=== PATIENT | male | born 1955 | race Caucasian/White ===

== ENCOUNTER 2019-03-05 08:56 | Emergency (ER) | payer BC ==
--- OUTSIDE RECORDS SUMMARY | 2019-03-05 08:59 | XMS REPORT ---
:1955 Author Organization [facility] Address [address] [place] [address] Care Team Providers Name Role Phone Unavailable Unavailable Unavailable Payers Payer Name Policy Type Policy Number Effective Date Expiration Date Problems This patient has no known problems. Allergies, Adverse Reactions, Alerts Allergy Allergy Status Severity Reaction(s) Onset Inactive Treating Comments Name Type Date Date Clinician No Known DA Active U 2018-07 Drug -29 Allergies 00:00:0 0 Medications This patient has no known medications. Results Test Description Test Time Test Comments Text Results Atomic Results Result Comments - XR SPINE 1 V SPEC LEVEL 2018-08-15 11:44:00 Patient Name: ELIZABETH DRIVER Unit No: [id number] EXAMS: CPT CODE: [id number] XR SPINE 1 V SPEC LEVEL 89021 INTRAOPERATIVE LATERAL LUMBAR SPINE Film 1. A marker is posterior to L3-4. Film 2. A surgical instrument is posterior to L3-4. at 1144 Reported and signed by: Dhaval Baker MD CC: Tolu De La Fuente M.D. Technologist: GERI ENGLISH (RT.R) Transcribed D/ (1144) [facility] NAME: ELIZABETH DRIVER [address] [facility] PHYS: Og Sahu MD : 1955 AGE: 62 SEX: M [place] [address] LOC: ALFONZO PHONE #: [phone] EXAM DATE: 08/14/2018 STATUS: [facility] [place] FAX #: [phone] RAD #: D/C DT PAGE 1 Signed Report Patient Name: ELIZABETH DRIVER Unit No: [id number] EXAMS: CPT CODE: [id number] XR SPINE 1 V SPEC LEVEL 70684 <Continued> Orig Print D/T: S: 08/15/2018 (1140) [facility] NAME: ELIZABETH DRIVER [address] [facility] PHYS: Og Sahu MD : 1955 AGE: 62 SEX: M [place] [address] LOC: ALFONZO PHONE #: [phone] EXAM DATE: 08/14/2018 STATUS: [facility] [place] FAX #: [phone] RAD #: D/C DT PAGE 2 Signed Report - XR SPINE 1 V SPEC LEVEL 2018-08-15 11:44:00 Patient Name: ELIZABETH DRIVER Unit No: [id number] EXAMS: CPT CODE: [id number] XR SPINE 1 V SPEC LEVEL 83367 INTRAOPERATIVE LATERAL LUMBAR SPINE Film 1. A marker is posterior to L3-4. Film 2. A surgical instrument is posterior to L3-4. at 1144 Reported and signed by: Dhaval Baker MD CC: Tolu De La Fuente M.D. Technologist: GERI ENGLISH (RT.R) Transcribed D/ (1149) [facility] NAME: ELIZABETH DRIVER [address] [facility] PHYS: Og Sahu MD : 1955 AGE: 62 SEX: M [place] [address] LOC: ALFONZO PHONE #: [phone] EXAM DATE: 08/14/2018 STATUS: [facility] [place] FAX #: [phone] RAD #: D/C DT PAGE 1 Signed Report Patient Name: ELIZABETH DRIVER Unit No: [id number] EXAMS: CPT CODE: [id number] XR SPINE 1 V SPEC LEVEL 05723 <Continued> Orig Print D/T: S: 08/15/2018 (1147) [facility] NAME: ELIZABETH DRIVER [address] [facility] PHYS: Og Sahu MD : 1955 AGE: 62 SEX: M [place], [place] [address] LOC: ALFONZO PHONE #: [phone] EXAM DATE: 08/14/2018 STATUS: [facility] [place] FAX #: [phone] RAD #: D/C DT PAGE 2 Signed Report BASIC METABOLIC PANEL 2018-08-13 11:58:00 Test Item Value Reference Range Comments SODIUM (test code=NA) 131 mmol/L 136-145 POTASSIUM (test code=K) 3.9 mmol/L 3.5-5.1 CHLORIDE (test code=CL) 94.0 mmol/L 98-107 CARBON DIOXIDE (test code=CO2) 28.7 mmol/L 21-32 GLUCOSE (test code=GLU) 93 mg/dL 70-110 BLOOD UREA NITROGEN (test 11 mg/dL 7-18 code=BUN) GLOMERULAR FILTRATION RATE (test 74.9 >60 Unit of measure: mL/min/1.73 code=GFR) [id number] Range:Healthy Adults >90 mL/min/1.73 m2 For Chronic Kidney Disease: Stage II Mild Decrease in GFR 60-90 Stage III Moderate Decrease in GFR 30-59 Stage IV Severe Decrease in GFR 15-29 Stage V Kidney Failure <15 CREATININE (test code=CREAT) 1.01 mg/dL 0.55-1.30 CALCIUM (test code=CA) 8.4 mg/dL 8.2-10.1 URINALYSIS [id number] 11:44:00 Test Item Value Reference Range Comments UA COLOR (test code=COLU) YELLOW YELLOW UA APPEARANCE (test code=APPU) CLEAR CLEAR UA GLUCOSE DIPSTICK (test code=DGLUU) NEGATIVE NEGATIVE UA BILIRUBIN DIPSTICK (test code=BILU) 2+ NEGATIVE UA KETONE DIPSTICK (test code=KETU) NEGATIVE mg/dL NEGATIVE UA SPECIFIC GRAVITY (test code=SGU) <=1.005 1.003-1.035 UA BLOOD DIPSTICK (test code=MUKESH) NEGATIVE NEGATIVE UA PH DIPSTICK (test code=DIVINE) 7.0 >6.5 UA PROTEIN DIPSTICK (test code=PROU) NEGATIVE mg/dL NEG UA UROBILINIOGEN DIPSTICK (test code=URO) 0.2 mg/dL NORM UA NITRITE DIPSTICK (test code=DOMINIQUE) NEGATIVE NEG UA LEUKOCYTE ESTERASE DIPSTICK (test NEGATIVE NEGATIVE code=LEUU) UA WBC (test code=WBCU) NONE SEEN /HPF 0-2 UA RBC (test code=RBCU) NONE SEEN /HPF 0-2 UA EPITHELIAL CELLS (test code=EPIU) NONE SEEN /HPF 0-2 UA BACTERIA (test code=BACU) RARE /HPF NONE CBC W/AUTO [id number] 11:10:00 Test Item Value Reference Range Comments WHITE BLOOD CELL (test code=WBC) 7.6 K/mm3 5.7-10.5 RED BLOOD CELL (test code=RBC) 4.69 M/mm3 4.2-5.4 HEMOGLOBIN (test code=HGB) 14.0 g/dL 12-16 HEMATOCRIT (test code=HCT) 39.5 % 37-47 MEAN CELL VOLUME (test code=MCV) 84 fL 80-98 MEAN CELL HGB (test code=MCH) 29.9 pg 27-34 MEAN CELL HGB CONCENTRATION (test code=MCHC) 35.4 g/dL 30.8-34.1 RED CELL DISTRIBUTION WIDTH (test code=RDW) 12.0 % 11-16 PLT (test code=PLT) 227 K/mm3 130-400 MEAN PLATELET VOLUME (test code=MPV) 9.5 fL 8.9-12.1 NEUTROPHIL % (test code=NT%) 67.9 % 45-70 LYMPHOCYTE % (test code=LY%) 19.7 % 20-40 MONOCYTE % (test code=MO%) 9.1 % 3-10 EOSINOPHIL % (test code=EO%) 1.6 % 1-5 BASOPHIL % (test code=BA%) 0.4 % 0.0-1.1 NEUTROPHIL # (test code=NT#) 5.15 K/mm3 2.00-7.50 LYMPHOCYTE # (test code=LY#) 1.49 K/mm3 1.50-4.00 MONOCYTE # (test code=MO#) 0.69 K/mm3 0.2-0.8 EOSINOPHIL # (test code=EO#) 0.12 K/mm3 0.04-0.4 BASOPHIL # (test code=BA#) 0.03 K/mm3 0.02-0.10 MANUAL DIFF REQUIRED (test code=MDIFF) NO MANUAL DIFF NUCLEATED RED BLOOD CELL (test code=NRBC) 0 % 0-0 - MRI L-SPINE W/O [id number] 10:51:00 Patient Name: ELIZABETH DRIVER Unit No: [id number] EXAMS: CPT CODE: [id number] MRI L-SPINE W/O CONT 05118 DIAGNOSIS: 1. At L1-2 there is no evidence for disc bulge or herniation, bony canal or foraminal stenosis. 2. At L2-3 there is a mild retrolisthesis with associated disc bulging and mild foraminal narrowing on the left with moderate narrowing on the right. Mild central canal stenosis is seen with facet and ligamentum flavum hypertrophicand degenerative change. 3. At L3-4 there is a mild retrolisthesis with 6 mm of cephalad extruded right posterior lateral disc herniation filling the right lateral recess of L3 compressing the right L4 nerve root and to a lesser degree the thecal sac. Mild narrowing of the central canal is seen due to facet and ligamentum flavum hypertrophic and degenerative change. Moderate bilateral foraminal narrowing is present. 4. At L4-5 there is a slight retrolisthesis and 2 mm of right foraminal disc bulging. Mild foraminal narrowing is present on the left with slight narrowing on the right. Mild narrowing of the central canal is seen with facet and ligamentum flavum hypertrophic and degenerative change. 5. At L5-S1 there are bilateral L5 spondylolysis defects and a grade 1 spondylolisthesis with upwards disc bulging. Moderate left foraminal narrowing is seen with mild right-sided stenosis. There is no evidence for canal stenosis. COMMENT: COMPARISON: No prior exams available. Scans were performed in the sagittal and axial planes utilizing T1, T2 and inversion recovery images. Endplate and disc degeneration is seen at all levels except L4-5.A scoliosis convex left is present. Disc configurations are as described. Spondylitic changes are as noted. The conus is in the expected location. The description these findings assumes a normal count of 5 lumbar type vertebra. at 1051 Reported and signed by: Dhaval Baker MD CC: Tolu De La Fuente M.D.Technologist: JOY PITTMAN RT(R) Transcribed D/ (1951) [email or web address] NAME: EILZABETH DRIVER [address] [facility] PHYS: Og Sahu MD : 1955 AGE: 62 SEX: M [place], [place] [address]FODS NO : [id number] LOC: Y.MRI PHONE #: [phone] EXAM DATE: 08/09/2018 STATUS: [facility] FAX #: [phone] RAD #: D/C DT PAGE 1 Signed Report Patient Name: ELIZABETH DRIVER Unit No: [id number] EXAMS: CPT CODE : [id number] MRI L-SPINE W/O CONT [id number] <Continued> Orig Print D/T: S: 08/12/2018 (7938) [facility] NAME: ELIZABETH DRIVER [address] [facility] PHYS: Og Sahu MD : 1955 AGE: 62 SEX: M [place], [place] [address] LOC: Y.MRI PHONE #: [phone] EXAM DATE: 08/09/2018 STATUS: [facility] FAX #: [phone] RAD # : D/C DT PAGE 2 Signed Report
[2019-03-05] MEDS ORDERED: MORPHINE 4 MG/ML SYR ONE (09:21)
[2019-03-05] MEDS ORDERED: ONDANSETRON 4 MG/2 ML VIAL ONE (09:22)
[2019-03-05 09:39] LABS: Absolute Lymphocytes (CBC) 1.2 K/uL (0.7-4.9); Hematocrit 43.1 % (39.6-49.0); Lymphocytes % 22.2 % (15.3-44.8); MPV 8.6 fL (7.6-11.3); RBC Red Blood Cell Count 4.85 M/uL (4.33-5.43)
[2019-03-05 09:43] LABS: Protime INR 0.96
[2019-03-05 09:50] LABS: Potassium 3.9 mmol/L (3.5-5.1)
--- NOTE | 2019-03-05 10:36 | RAD REPORT ---
EXAM DESCRIPTION: CT - Chest Abdomen Pelvis W Cont - 03/05/2019 10:19 am CLINICAL HISTORY: Chest and abdomen pain. fall, lande don left side on stairs, left rib/flank/pelvic COMPARISON: No comparisons TECHNIQUE: Approximately 100 mL nonionic IV contrast was administered to the patient. All CT scans are performed using dose optimization technique as appropriate and may include automated exposure control or mA/KV adjustment according to patient size. FINDINGS: Subsegmental atelectasis is present in the right lung base. The lungs are otherwise clear. No pleural or pericardial effusion.No intrathoracic adenopathy. Nondisplaced fracture involves the posterior left tenth and eleventh ribs as well as the left L1 licea sverse process. The liver, spleen, pancreas, adrenal glands and kidneys are within normal limits. No bowel obstruction, free air, free fluid or abscess. Small bilateral fat containing inguinal hernia s. Small fat containing umbilical hernia. No pathologic lymphadenopathy in the abdomen or pelvis. IMPRESSION: Nondisplaced fracture involving posterior left tenth and eleventh ribs.No pneumothorax. Nondisplaced fracture involving the left transverse process L1 without canal compromise.
--- NOTE | 2019-03-05 10:58 | ER ---
Nurse's Notes [facility] Name: Dedrick Holliday Age: 63 yrs Sex: Male : 1955 Arrival Date: 03/05/2019 Time: 08:58 Bed 5 Private MD: Diagnosis: Multiple fractures of ribs, left side;Fracture of first lumbar vertebra-Left spinous process Presentation: 03/05 09:04 Presenting complaint: Patient states: fell while walking down stairs 3 days ago, ss coughed two hours ago and reports that the pain is now much worse. Slipped on 4th from last step. Transition of care: patient was not received from another setting of care. Onset of symptoms was March 02, 2019. Risk Assessment: Do you want to hurt yourself or someone else? Patient reports no desire to harm self or others. Initial Sepsis Screen: Does the patient have a suspected source of infection? No. Patient's initial sepsis screen is negative. Care prior to arrival: None. 09:04 Method Of Arrival: Ambulatory ss 09:04 Acuity: CONTRERAS 3 ss Historical: - Allergies: 09:08 No Known Allergies; ss - Immunization history:: Adult Immunizations up to date. - Social history:: Smoking status: Patient/guardian denies using tobacco. - Ebola Screening: : Patient denies exposure to infectious person Patient denies travel to an Ebola-affected area in the 21 days before illness onset. - Family history:: not pertinent. - Hospitalizations: : No recent hospitalization is reported. Screenin:45 Abuse screen: Denies threats or abuse. Denies injuries from another. Nutritional sg screening: No deficits noted. Tuberculosis screening: No symptoms or risk factors identified. Never had TB. Fall Risk Fall in past 12 months (25 points). No secondary diagnosis (0 pts). No IV (0 pts). Ambulatory Aid- None/Bed Rest/Nurse Assist (0 pts). Gait- Normal/Bed Rest/Wheelchair (0 pts) Mental Status- Oriented to own ability (0 pts). Total Gomez Fall Scale indicates Low Risk Score (25-44 pts). Fall prevention measures have been instituted. Side Rails Up X 2 Frequent Obs/Assesments occuring Family Present and informed to notify staff if they need to leave bedside. Assessment: 10:47 Reassessment: Patient appears in no apparent distress at this time. at bedside sg updating pt and pt family on results and POC at this time, awaiting new orders, will continue to monitor. Vital Signs: 09:08 Resp 18; Weight 95.25 kg; Height 5 ft. 10 in. (177.80 cm); Pain 9/10; ss 09:14 BP 181 / 94; Pulse 60; Pulse Ox 97% ; sv 10:28 BP 167 / 94; Pulse 50; Resp 18; Pulse Ox 97% ; sv 09:08 Body Mass Index 30.13 (95.25 kg, 177.80 cm) ED Course: 08:58 Patient arrived in ED. as 09:00 Fabiano Luong MD is Attending Physician. rn 09:02 Lai Borrego, JUAN C is Primary Nurse. sg 09:07 Triage completed. ss 09:08 Arm band placed on right wrist. ss 09:15 Patient has correct armband on for positive identification. Bed in low position. Call sg light in reach. Side rails up X2. desk monitor on. Pulse ox on. NIBP on. Warm blanket given. Head of bed elevated. 09:29 Initial lab(s) drawn, by vt, sent to lab. Inserted saline lock: 20 gauge in right em1 antecubital area, using aseptic technique. Blood collected. 09:37 XRAY Chest (1 view) In Process Unspecified. EDMS 10:21 CT Chest, Abdomen, Pelvis - W/Contrast In Process Unspecified. EDMS 11:10 No provider procedures requiring assistance completed. IV discontinued, intact, sg bleeding controlled, No redness/swelling at site. Pressure dressing applied. Administered Medications: 09:25 Drug: Zofran 4 mg Route: IVP; Site: right antecubital; sg 09:27 Drug: morphine 4 mg Route: IVP; Site: right antecubital; sg Outcome: 10:57 Discharge ordered by . rn 11:05 Discharged to home ambulatory, with family. sg 11:05 Condition: good 11:05 Discharge instructions given to patient, Instructed on discharge instructions, follow up and referral plans. no drinking with medication, no driving heavy equipment, medication usage, safety practices, Incentive spirometry Demonstrated understanding of instructions, follow-up care, medications, Prescriptions given X 3. 11:12 Patient left the ED. sg Signatures: Dispatcher [employer] EDMS Yaritza Duque RN RN Lai Hopkins, RN RN nnamdi Goncalves, Fabiano Blanco MD MD rn Martinez, Dawn Reyes, JUAN C RN
--- NOTE | 2019-03-05 10:59 | EDPHYS ---
Physician Documentation [facility] Name: Dedrick Holliday Age: 63 yrs Sex: Male : 1955 Arrival Date: 03/05/2019 Time: 08:58 Bed 5 Private MD: ED Physician Fabiano Luong HPI: 03/05 09:18 This 63 yrs old Male presents to ER via Ambulatory with complaints of Rib rn Injury. 09:18 The patient or guardian reports chest pain that is located primarily in the left rn lateral anterior chest and left lateral posterior chest. Onset: The symptoms/episode began/occurred 3 day(s) ago. The pain does not radiate. Associated signs and symptoms: Pertinent negatives: headache, near syncope, palpitations, syncope, vomiting. The chest pain is described as sharp, stabbing. Duration: The patient or guardian reports multiple episodes, that are intermittent. Modifying factors: The symptoms are alleviated by nothing. the symptoms are aggravated by deep breath, movement, palpation of area. Severity of pain: At its worst the pain was moderate in the emergency department the pain is unchanged. The patient has not experienced similar symptoms in the past. Reports fall down stairs on Saturday, has been in pain since then, taking ibuprofen ritually since then, today coughed and strained, and had worse pain to left ribs/flank. Reports landed on left side of body, onto 3 steps, no head injury, reports pain to left ribs and left pelvis. . Historical: - Allergies: 09:08 No Known Allergies; ss - Immunization history:: Adult Immunizations up to date. - Social history:: Smoking status: Patient/guardian denies using tobacco. - Ebola Screening: : Patient denies exposure to infectious person Patient denies travel to an Ebola-affected area in the 21 days before illness onset. - Family history:: not pertinent. - Hospitalizations: : No recent hospitalization is reported. ROS: 09:18 Constitutional: Negative for fever, chills, and weight loss, Eyes: Negative for injury, rn pain, redness, and discharge, Neck: Negative for injury, pain, and swelling, Cardiovascular: + left rib pain Respiratory: Negative for shortness of breath, cough, wheezing Abdomen/GI: + left pelvic pain MS/Extremity: Negative for injury and deformity, Skin: Negative for injury, rash, and discoloration, Neuro: Negative for headache, weakness, numbness, tingling, and seizure. Exam: 09:18 Constitutional: This is a well developed, well nourished patient who is awake, alert, rn very slow ambulating to room. Head/Face: Normocephalic, atraumatic. Eyes: Pupils equal round and reactive to light, extra-ocular motions intact. Lids and lashes normal. Conjunctiva and sclera are non-icteric and not injected. Cornea within normal limits. Periorbital areas with no swelling, redness, or edema. ENT: No oral trauma. Cardiovascular: Regular rate and rhythm. No pulse deficits. Respiratory: Lungs have equal breath sounds bilaterally, clear to auscultation. No increased work of breathing, no retractions or nasal flaring. Splinting left chest with deep breath Abdomen/GI: soft, mild LUQ tenderness, no skin changes Back: No spinal tenderness. MS/ Extremity: Pulses equal, no cyanosis. Neurovascular intact. Full, normal range of motion Neuro: Awake and alert, GCS 15, oriented to person, place, time, and situation. Cranial nerves II-XII grossly intact. Motor strength 5/5 in all extremities. Sensory grossly intact. Cerebellar exam normal. Normal gait. Vital Signs: 09:08 Resp 18; Weight 95.25 kg; Height 5 ft. 10 in. (177.80 cm); Pain 9/10; ss 09:14 BP 181 / 94; Pulse 60; Pulse Ox 97% ; sv 10:28 BP 167 / 94; Pulse 50; Resp 18; Pulse Ox 97% ; sv 09:08 Body Mass Index 30.13 (95.25 kg, 177.80 cm) ss MDM: 09:00 Patient medically screened. rn 10:55 Differential diagnosis: Blunt Chest Trauma Chest Wall Contusion Chest Wall Injury rn Pneumothorax Pulmonary Contusion Rib Fracture. Data reviewed: vital signs, nurses notes, lab test result(s), radiologic studies, CT scan, plain films, and as a result, I will discharge patient. Counseling: I had a detailed discussion with the patient and/or guardian regarding: the historical points, exam findings, and any diagnostic results supporting the discharge/admit diagnosis, lab results, radiology results, the need for outpatient follow up, to return to the emergency department if symptoms worsen or persist or if there are any questions or concerns that arise at home. Response to treatment: the patient's symptoms have mildly improved after treatment, and as a result, I will discharge patient. Special discussion: I discussed with the patient/guardian in detail that at this point there is no indication for admission to the hospital. It is understood, however, that if the symptoms persist or worsen the patient needs to return immediately for re-evaluation. ED course: Pt with left 10th/11th rib fractures, no pneumothorax or pulmonary contusion, also L1 transverse process fracture. Will dc home with pain medication and muscle relaxers. Given incentive spirometer, and instructed on what not to do to prevent secondary problems such as pneumonia.. 03/05 09:15 Order name: CBC with Diff; Complete Time: 10:33 03/05 09:15 Order name: Basic Metabolic Panel; Complete Time: 10:33 03/05 09:15 Order name: CT Chest, Abdomen, Pelvis - W/Contrast; Complete Time: 10:41 03/05 09:15 Order name: PT-INR; Complete Time: 10:33 03/05 09:15 Order name: Ptt, Activated; Complete Time: 10:33 03/05 09:15 Order name: XRAY Chest (1 view) 03/05 09:15 Order name: IV Start; Complete Time: 09:27 03/05 11:00 Order name: INCENTIVE SPIROMETRY sg Administered Medications: 09:25 Drug: Zofran 4 mg Route: IVP; Site: right antecubital; sg 09:27 Drug: morphine 4 mg Route: IVP; Site: right antecubital; sg Disposition: 03/05/19 10:57 Discharged to Home. Impression: Multiple fractures of ribs, left side, Fracture of first lumbar vertebra - Left spinous process. - Condition is Stable. - Discharge Instructions: Rib Fracture, Transverse Process Fracture. - Prescriptions for Ibuprofen 800 mg Oral Tablet - take 1 tablet by ORAL route every 12 hours As needed take with food; 20 tablet. Tylenol- Codeine #3 300-30 mg Oral Tablet - take 1 tablet by ORAL route every 6 hours As needed; 20 tablet. Cyclobenzaprine 10 mg Oral Tablet - take 1 tablet by ORAL route every 8 hours As needed; 20 tablet. - Work release form, Medication Reconciliation Form, Thank You Letter, Antibiotic Education, Prescription Opioid Use form. - Follow up: Private Physician; When: As needed; Reason: Recheck today's complaints, Re-evaluation by your physician. - Problem is new. - Symptoms have improved. Signatures: Dispatcher [employer] Lai Gregory RN RN sg Nieto, Roman, MD MD rn Smirch, Shelby, RN RN ss Corrections: (The following items were deleted from the chart) 11:12 10:57 03/05/2019 10:57 Discharged to Home. Impression: Multiple fractures of ribs, left sg side; Fracture of first lumbar vertebra - Left spinous process. Condition is Stable. Forms are Medication Reconciliation Form, Thank You Letter, Antibiotic Education, Prescription Opioid Use. Follow up: Private Physician; When: As needed; Reason: Recheck today's complaints, Re-evaluation by your physician. Problem is new. Symptoms have improved. rn
[2019-03-05 11:34] VITALS: BP 167/94; O2SAT 97
--- NOTE | 2019-03-13 11:30 | RAD REPORT ---
EXAM DESCRIPTION: RAD - Chest Single View - 03/05/2019 9:33 am CLINICAL HISTORY: Blunt force trauma to the chest and upper abdomen COMPARISON: None. TECHNIQUE: AP portable chest image was obtained 0930 hours . FINDINGS: Exam was resubmitted for interpretation as the original dictation cannot be retrieved. Lung volumes are low. Right hemidiaphragm is elevated. Lung parenchyma is clear. Heart and vasculatur e are normal. No measurable pleural effusion and no pneumothorax. No acute bone finding identifiable. AC joint degenerative changes are present. Rib detail is considered limited in this setting. No acut e aortic findings suspected. IMPRESSION: No acute cardiopulmonary process. No gross acute bone abnormality seen. Dedicated rib films or CT chest imaging could be performed if t here is concern for rib fracture.
== END 2019-03-05 11:12 | disposition home or self-care (01) ==
LOC: ER 08:56
DX: S22.42XA Multiple fractures of ribs, left side, initial encounter for closed fracture (principal); S32.019A Unspecified fracture of first lumbar vertebra, initial encounter for closed fracture; W10.9XXA Fall (on) (from) unspecified stairs and steps, initial encounter; Y93.9 Activity, unspecified; Y92.9 Unspecified place or not applicable
CPT/HCPCS: 85025; 80048; 36415; 85610; 85730; 71260; 74177; 71045; 96375; 96374; 99284; Q9967; J2405

== ENCOUNTER 2024-01-17 17:11 | Emergency (ER) | payer OTHER ==
--- OUTSIDE RECORDS SUMMARY | 2024-01-17 17:18 | XMS REPORT | Continuity of Care Document ---
Author Name Unknown Address [address] [place] [address] [facility]connect Address 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 Name Role Phone PCP, PATIENT DOES NOT HAVE A Primary Care Physic raul Unavailable EbrahiMaria Guadalupe Watts Attending Clinician + Unknown, Attending Attending Clinician Unavailab MARIA GUADALUPE Stallings Attending Clinician Unavailable Ebrahim MATZO FORMING MACHINE OPERATORMaria Guadalupe Newman Attending Clinician + Unknown, Attending Attending Clinician Unavailab le Doctor Unassigned, [place] Attending Clinician U navailable Payers Payer Name Policy Type Policy Number Effective Date Expirati on Date Source Allergies, Adverse Reactions, Alerts Allergy Name Allergy Type Status Severity Reaction(s) Onset Date Inactive Date Treating Clinician Comments Source No Known Drug Allergie s DA Active U 08-13 00:00: 00 [facility] NO KNOWN ALLERGIE S Drug Class Active [facility] Social History Social Habit Start Date Stop Date Quantity Comments Source Sexual orientation U [facility] Exposure to SARS-CoV-2 (event) 2022-05-20 00:00:00 2022-05-30 18:37:00 Not sure [facility] History of Social function 2022-05-30 00:00:00 2022-05-30 00:00:00 [facility] Sex assigned at 1955 00:00:00 1955 00:00:00 [facility] Smoking Status Start Date Stop Date Source Tobacco smoking consumption unknown [facility] Medications Ordered Medication Name Filled Medication Name Start Date Stop Date Current Medication? Ordering Clinician Indication Dosage Frequency Signature (SIG) Comments Components Source nirmatrelvi r-ritonavir (PAXLOVID, EUA,) 300 mg (150 mg x 2)-100 mg tablet 15 00:00: 00 Yes [id number] 3{tbl} Take 3 tablets by mouth in the morning and 3 tablets in the evening. [facility] Immunizations Ordered Immunization Name Filled Immunization Name Date Status Comments Source SARS-COV-2 COVID-19 PFIZER VACCINE 2020-07-01 00:00:00 Completed [facility] SARS-COV-2 COVID-19 PFIZER VACCINE 2020-07-01 00:00:00 Completed [facility] SARS-COV-2 COVID-19 PFIZER VACCINE 2020-07-01 00:00:00 Completed [facility] SARS-COV-2 COVID-19 PFIZER VACCINE 2020-06-10 00:00:00 Completed [facility] SARS-COV-2 COVID-19 PFIZER VACCINE 2020-06-10 00:00:00 Completed [facility] SARS-COV-2 COVID-19 PFIZER VACCINE 2020-06-10 00:00:00 Completed [facility] Vital Signs Vital Name Observation Time Observation Value Comments S kenneth Systolic blood pressure 2023-12-13 20:54:00 138 mm[Hg] [place] [facility] Diastolic blood pressure 2023-12-13 20:54:00 75 mm[Hg] [facility] Heart rate 2023-12-13 20:54:00 56 /min [facility] Body temperature 2023-12-13 20:54:00 36.39 Latia [facility] Respiratory rate 2023-12-13 20:54:00 16 /min [facility] Body height 2023-12-13 20:54:00 177.8 cm [facility] Body weight 2023-12-13 20:54:00 103.465 kg [facility] BMI 2023-12-13 20:54:00 32.73 kg/m2 [facility] Oxygen saturation in Arterial blood by Pulse oximetry 2023-12-13 20:54:00 99 /min [facility] Systolic blood pressure 2022-05-30 23:43:00 152 mm[Hg] [facility] Diastolic blood pressure 2022-05-30 23:43:00 87 mm[Hg] [facility] Heart rate 2022-05-30 23:39:00 65 /min [facility] Body temperature 2022-05-30 23:39:00 36.94 Latia [facility] Respiratory rate 2022-05-30 23:39:00 18 /min [facility] Body height 2022-05-30 23:39:00 177.8 cm [facility] Body weight 2022-05-30 23:39:00 102.967 kg [facility] BMI 2022-05-30 23:39:00 32.57 kg/m2 [facility] Oxygen saturation in Arterial blood by Pulse oximetry 2022-05-30 23:39:00 98 /min [facility] Procedures Procedure Date / Time Performed Performing Clinicia n Source ASSIGNMENT OF BENEFITS 2022-05-30 23:29:40 Docto r Unassigned, [place] [facility] POCT SARS-COV-2 ANTIGEN (BINAX NOW) 2022-05-30 00:00:00 Maria Guadalupe Garza [facility] Encounters Start Date/Time End Date/Time Encounter Type Admission Type Attending Clinicians Care Facility Care Department Encounter ID Source 2023-12-13 16:00:00 2023-12-13 16:20:00 Urgent Care Maria Guadalupe Garza Unknown, Attending [facility] RADHA?[facility] [id number] [id number] [facility] 2023-12-13 16:00:00 2023-12-13 16:00:00 Outpatient R MARIA GUADALUPE GARZA [facility] [id number] [facility] 2022-05-30 18:40:00 2022-05-30 18:57:20 Urgent Care Maria Guadalupe Garza Unknown, Attending [facility] QASIM GARCIA?[facility] [id number] [id number] [facility] 2022-05-30 18:40:00 2022-05-30 18:57:20 Outpatient R MARIA GUADALUPE GARZA [facility] [id number] [facility] 2022-05-30 00:00:00 2022-05-30 00:00:00 Orders Only Doctor Unassigned, [place] [facility] [id number] [id number] [id number] [facility] Results Test Description Test Time Test Comments Results Result Co mments Source [facility]- XR SPINE 1 V SPEC [id number] 11:44:00 Patient Name: ELIZABETH DRIVER Unit No: [id number] EXAMS: CPT CODE: [id number] XR SPINE 1 V SPECLEVEL 37711 INTRAOPERATIVE LATERAL LUMBAR SPINE Film 1. A marker is posterior to L3-4. Film 2. A surgical instrument is posterior to L3-4. at 1144 Reported and signed by: Dhaval Baker MD CC: Tolu De La Fuente M.D. Technologist: GERI ENGLISH (RT.R) Transcribed D/ (1144) Anita [facility] NAME: ELIZABETH DRIVER [address] [facility] [place] [facility] PHYS: Og Sahu MD : 1955 AGE: 62 SEX: M [place], [place] [address] LOC: G[facility]YU PHONE #: [phone] EXAM DATE: 08/14/2018 STATUS: [facility] FAX #: [phone] RAD #: D/C DT PAGE 1 Signed Report Patient Name: ELIZABETH DRIVER Unit No: [id number] EXAMS: CPT CODE: [id number] XR SPINE 1 V SPEC LEVEL 00483 (Continued) Orig Print D/T: S: 08/15/2018 (1147) [facility] NAME: ELIZABETH DRIVER [address] [facility] [place] [facility] PHYS: Og Sahu MD : 1955 AGE: 62 SEX: M [place], [place] [address] LOC: PamelaDSU PHONE #: [phone] EXAM DATE: 08/14/2018 STATUS: [facility] FAX #: [phone] RAD #: D/C DT PAGE 2 Signed Report- XR SPINE 1 V SPEC [id number] 11:44:00Patient Name: ELIZABETH DRIVER Unit No: [id number] EXAMS: CPT CODE: [id number] XR SPINE 1 V SPECLEVEL 28123 INTRAOPERATIVE LATERAL LUMBAR SPINE Film 1. A marker is posterior to L3-4. Film 2. A surgical instrument is posterior to L3-4. at 1144 Reported and signed by: Dhaval Baker MD CC: Tlou De La Fuente M.D. Technologist: GERI ENGLISH (RT.R) Transcribed D/ (1144) [facility] NAME: ELIZABETH DRIVER [address] [facility] [place] [facility] PHYS: Og Sahu MD : 1955 AGE:62 SEX: M [place] [id number] LOC: PamelaDSU PHONE #: [phone] EXAM DATE: 08/14/2018 STATUS: [facility] FAX #: [phone] RAD #: D/C DT PAGE 1 Signed Report Patient Name: ELIZABETH DRIVER Unit No: [id number] EXAMS: CPT CODE: [id number] XR SPINE 1 V SPEC LEVEL 23290 (Continued) Orig Print D/T: S: 08/15/2018 (1147) [facility] NAME: ELIZABETH DRIVER [address] PHYS: Og Sahu MD : 1955 AGE: 62 SEX: M [place], [place] [address] LOC: YDaveDSU PHONE #: [phone] EXAM DATE: 08/14/2018 STATUS: DEP SDC FAX #: [phone] RAD #: D/C DT PAGE 2 Signed ReportBASIC METABOLIC [id number] 11:58:00* Test Item Value Reference Range Interpretation Comme nts SODIUM (test code = NA) 131 mmol/L 136-145 L POTASSIUM (test code = K) 3.9 mmol/L 3.5-5.1 N CHLORIDE (test code = CL) 94.0 mmol/L 98-107 L CARBON DIOXIDE (test code = CO2) 28.7 mmol/L 21-32 N GLUCOSE (test code = GLU) 93 mg/dL 70-110 N BLOOD UREA NITROGEN (test code = BUN) 11 mg/dL 7-18 N GLOMERULAR FILTRATION RATE (test code = GFR) 74.9 >60 Unit of m easure: mL/min/1.73 [id number] Range:Healthy Adults >90 mL/min/1.73 m2 For Chronic Kidney Disease: Stage II Mild Decrease in GFR 60-90 Stage III Moderate Decrease in GFR 30-59 Stage IV Severe Decrease in GFR 15-29 Stage V Kidney Failure <15 CREATININE (test code = CREAT) 1.01 mg/dL 0.55-1.30 N CALCIUM (test code = CA) 8.4 mg/dL 8.2-10.1 N URINALYSIS [id number] 11:44:00* Test Item Value Reference Range Interpretation Comme nts UA COLOR (test code = COLU) YELLOW YELLOW UA APPEARANCE (test code = APPU) CLEAR CLEAR UA GLUCOSE DIPSTICK (test co de = DGLUU) NEGATIVE NEGATIVE UA BILIRUBIN DIPSTICK (test code = BILU) 2+ NEGATIVE A UA KETONE DIPSTICK (test cod e = KETU) NEGATIVE mg/dL NEGATIVE UA SPECIFIC GRAVITY (test co de = SGU) <=1.005 1.003-1.035 UA BLOOD DIPSTICK (test code = MUKESH) NEGATIVE NEGATIVE UA PH DIPSTICK (test code = DIVINE) 7.0 >6.5 UA PROTEIN DIPSTICK (test co de = PROU) NEGATIVE mg/dL NEG UA UROBILINIOGEN DIPSTICK (test code = URO) 0.2 mg/dL NORM UA NITRITE DIPSTICK (test co de = DOMINIQUE) NEGATIVE NEG UA LEUKOCYTE ESTERASE DIPSTI CK (test code = LEUU) NEGATIVE NEGATIVE UA WBC (test code = WBCU) NONE SEEN /HPF 0-2 UA RBC (test code = RBCU) NONE SEEN /HPF 0-2 UA EPITHELIAL CELLS (test co de = EPIU) NONE SEEN /HPF 0-2 UA BACTERIA (test code = BACU) RARE /HPF NONE CBC W/AUTO [id number] 11:10:00* Test Item Value Reference Range Interpretation Comme nts WHITE BLOOD CELL (test code = WBC) 7.6 K/mm3 5.7-10.5 N RED BLOOD CELL (test code = RBC) 4.69 M/mm3 4.2-5.4 N HEMOGLOBIN (test code = HGB) 14.0 g/dL 12-16 N HEMATOCRIT (test code = HCT) 39.5 % 37-47 N MEAN CELL VOLUME (test code = MCV) 84 fL 80-98 N MEAN CELL HGB (test code = MCH) 29.9 pg 27-34 N MEAN CELL HGB CONCENTRATION (test code = MCHC) 35.4 g/dL 30.8-34.1 H RED CELL DISTRIBUTION WIDTH (test code = RDW) 12.0 % 11-16 N PLT (test code = PLT) 227 K/mm3 130-400 N MEAN PLATELET VOLUME (test c ode = MPV) 9.5 fL 8.9-12.1 N NEUTROPHIL % (test code = NT%) 67.9 % 45-70 N LYMPHOCYTE % (test code = LY%) 19.7 % 20-40 L MONOCYTE % (test code = MO%) 9.1 % 3-10 N EOSINOPHIL % (test code = EO%) 1.6 % 1-5 N BASOPHIL % (test code = BA%) 0.4 % 0.0-1.1 N NEUTROPHIL # (test code = NT#) 5.15 K/mm3 2.00-7.50 N LYMPHOCYTE # (test code = LY#) 1.49 K/mm3 1.50-4.00 L MONOCYTE # (test code = MO#) 0.69 K/mm3 0.2-0.8 N EOSINOPHIL # (test code = EO#) 0.12 K/mm3 0.04-0.4 N BASOPHIL # (test code = BA#) 0.03 K/mm3 0.02-0.10 N MANUAL DIFF REQUIRED (test c ode = MDIFF) NO MANUAL DIFF NUCLEATED RED BLOOD CELL (te st code = NRBC) 0 % 0-0 N - MRI L-SPINE W/O [id number] 10:51:00Patient Name: ELIZABETH DRIVER Unit No: [id number] EXAMS: CPT CODE: [id number] MRI L-SPINE W/O CONT [id number] DIAGNOSIS: 1. At L1-2 there is no evidence for disc bulge or herniation, bony canal or foraminal stenosis. 2. At L2-3 there is a mild retrolisthesis with associated disc bulging and mild foraminal narrowing on the left with moderate narrowing on the right. Mild central canal stenosis is seen with facet and ligamentum flavum hypertrophic and degenerative change. 3. At L3-4 there is a mild retrolisthesis with 6 mm of cephalad extruded right posterior lateral disc herniation filling the right lateral recess of L3 compressing the right L4 nerve root and to a lesser degree the thecal sac.Mild narrowing of the central canal is seen [...] the sagittal and axial planes utilizing T1, T 2 and inversion recovery images. Endplate and disc degeneration is seen at all levels except L4-5. A scoliosis convex left is present. Disc configurations are as described. Spondylitic changes are as noted. The conus is in the expected location. The description these findings assumes a normal count of 5 lumbar type vertebra. [id number] Reported and signed by: Dhaval Baker MD CC: Tolu De La Fuente M.D. Technologist: JOY PITTMAN RT(R) Transcribed D/ (1927) [email or web address] [facility] NAME: ELIZABETH DRIVER [address] [place] [address] PHYS: Og Sahu MD : 1955 AGE: 62 SEX: M [place] [address] LOC: Y.MRI PHONE #: [phone] EXAM DATE: 08/09/2018 STATUS: DEP CLI FAX #: [phone] RAD #: D/C DT PAGE 1 Signed Report Patient Name: ELIZABETH DRIVER Unit No: [id number] EXAMS: CPT CODE: [id number] MRI L-SPINE W/O CONT 29062 (Continued) Orig Print D/T: S: 08/12/2018 (1054) [facility] NAME: ELIZABETH DRIVER [address] [facility] PHYS: Og Sahu MD : 1955 AGE: 62 SEX: M [place] [address] LOC: Y.MRI PHONE #: [phone] EXAM DATE: 08/09/2018 STATUS: DEP CLI FAX #: [phone] RAD #: D/C DT PAGE 2 Signed Report Notes Date/Time Note Provider Source 2018-08-15 09:47:00 [id number] [facility] [address] [place] [address] PATIENT NAME: ELIZABETH DRIVER ADMIT DATE: 08/14/18 ACCOUNT NO: [id number] ROOM NO: AGE: 62 REPORT TYPE: OPERATIVE REPORT SEX: M ADMITTING PHYSICIAN: ATTENDING PHYSICIAN:Og De La Fuente MD OPERATION DATE: 08/14/2018 PREADMISSION DIAGNOSES: Multiple level lumbar degenerative changes with spondylolisthesis at L5-S1 with acute disk herniation at L3-L4 with right severe L3-L4 radiculopathy. POSTADMISSION DIAGNOSES: Multiple level lumbar degenerative changes with spondylolisthesis at L5-S1 with acute disk herniation at L3-L4 with right severe L3-L4 radiculopathy. PROCEDURE PERFORMED: Hemilaminectomy to the right at L3-L4. SURGEON: Kaia De La Fuente MD CONTRACTS ADVISOR: Brad Byrne MD The skilled assistance of Brad Byrne MD was necessary during this complex spinal procedure. He assisted with every aspect of the operation including but not limited to, proper and safe positioning of the patient, obtaining adequate surgical exposure, manipulation of the surgical instruments, the delicate task of providing suction to the surgical wound immediately adjacent to the spinal cord and neural elements, the delicate task of retraction of the soft tissues including muscles, trachea, and esophagus for adequate surgical exposure, the continual process of hemostasis during the procedure itself in addition to surgical wound closure and removal of patient from the operating room bed safely and returning him to the hospital bed. His assistance allowed me to perform the most sensitive in technical portions of this operation using four well trained hands, thus enhancing patient safety. The extremely technical portions of this procedure would not be possible without the help of the skilled department assistant familiar with the procedure who is also capable of performing the aforementioned tasks and who is experienced working with the neural structures. Our facility is not a teaching hospital and as such there are no surgical residents or interns available to assist. ANESTHESIA: COMPLICATIONS: None. DISPOSITION: The patient was taken from the operating room to recovery room in stable condition. INDICATIONS FOR SURGICAL INTERVENTION: Mr. Driver is a pleasant gentleman with PATIENT NAME: ELIZABETH DRIVER a history of spondylolisthesis and multiple level lumbar degenerative changes with long-term history of on and off low back pain. He tolerated low back pain with exercise, stretching and living with the pain on a day to day basis. He developed a severe acute L3-L4 radiculopathy with pain into his right leg. The patient underwent an MRI, which showed a large disk herniation off to the right hand side at L3-L4 consistent with the patient's symptoms. It was discussed with him at length his options for management including further medicines, exercises, conservative measures, injections, surgical intervention. The pain significantly affected ability to sleep, walk, function and do his activities of daily living and because of the continued pain, he elected to proceed forward with surgical intervention. He understood the procedure, risks, benefits, and alternative forms of treatment and he would continue to have the back pain he had prior to the herniated disk. PROCEDURE IN DETAIL: The patient was taken to the OR after given appropriate perioperative antibiotics and 10 mg of Decadron. He was positioned with his neck in a neutral position, upper extremities well padded, and his pulses intact in the Mckeon frame. Needle localization of the L3-L4 interval was carried out. The patient was prepped and draped. Incision was carried down through the skin and subcutaneous tissue down to the lamina. The lamina L3 and L4 were identified and confirmed radiographically. The ligamentum flavum was elevated using a 4 and 5-mm Kerrison, the ball-ended. The L4 nerve root was dissected free through the lateral recess and around the pedicle. The L3 nerve root was identified, superiorly sequestered was a large fragment of disk, which was subligamentous. Three large fragments were removed with four smaller fragments being removed. The area was inspected the second and third time to ensure all loose and free fragments were removed. Irrigation and hemostasis was carried out. The area was reinspected. Irrigation and hemostasis once again carried out. A medium Hemovac was placed. The fascia was closed using interrupted #1 Vicryl, subcutaneous tissue with 2-0 Vicryl, skin with 3-0 Vicryl. Steri-Strips and sterile dressing were applied. The patient was taken from the operating room to recovery room in stable condition. POSTOPERATIVE PLAN: To be up and ambulatory, begin on a walking and exercise program. Given general precautions for bending, lifting, twisting, turning, bathing, and wound care. Infection and neurologic warnings were given. The patient is to return back to clinic to follow up in 3 weeks. Discharge medications included pain medicine, muscle relaxer, steroid, and antibiotic. The patient is to call the office with any problems or difficulties post the time of discharge to home. Dictated By: Kaia De La Fuente MD WT: OP:TERRY/FELECIAB/NTS Conf#: [id number]/DID#: [id number] Authenticated by Og De La Fuente MD On 08/19/2018 01:01:09 PM PATIENT NAME: ELIZABETH DRIVER at 2301 PATIENT NAME: ELIZABETH DRIVER HCATO 2018-08-14 12:20:00 [facility] Brief Op Note REPORT#:[id number] REPORT STATUS: Signed DATE:08/14/18 TIME: 1220 PATIENT: ELIZABETH DRIVER UNIT #: [id number] ROOM/BED: : 55 AGE: 62 SEX: M ATTEND: Og De La Fuente MD ADM AUTHOR: Og De La Fuente MD * ALL edits or amendments must be made on the electronic/computer document * Op/Inv Proc Note - Brief Pre-procedure diagnosis: HNP L3-4 Post-procedure diagnosis: same as pre procedure dx Procedures performed: LLD L3-4 Primary Surgeon: Sudhakar Fluid Pump Operator(s): none (Caty) Findings: see op Complications: none Estimated blood loss in ml's: none Specimens removed/altered: none at 1221 RPT #:[id number] END OF REPORT HCATO
--- NOTE | 2024-01-17 18:44 | RAD REPORT ---
EXAM: Hand Right 3 View HISTORY: fall;Pain COMPARISON: None FINDINGS: Bones: No acute fracture identified. Alignment:No significant malalignment. Degenerative changes:None significant. Other: n/a IMPRESSION: No evidence of acute osseous abnormality involving the imaged hand.
[2024-01-17 19:09] LABS: Absolute Basophils 0.1 K/uL (0-0.5); Absolute Eosinophils 0.1 K/uL (0-0.5); Absolute Lymphocytes (CBC) 1.9 K/uL (0.7-4.9); Absolute Neutrophil 8.4 K/uL (1.8-8.0); Basophils % 0.5 % (0-1.3); Eosinophils % 0.8 % (0-4.4); Lymphocytes % 16.9 % (15.3-44.8); MCH 30.9 pg (27.0-35.0); MCHC 34.8 g/dL (32.0-36.0); MCV 88.9 fL (80-100); MPV 8.5 fL (7.6-11.3); Monocytes % 8.8 % (3.3-12.3); Nucleated Red Blood Cells % 0.2 % (0-0); Platelets 208 thou/uL (152-406); RBC Red Blood Cell Count 4.83 M/uL (4.33-5.43); Red Cell Distribution Width 12.7 % (12.1-15.2)
[2024-01-17 19:14] LABS: Anion Gap 9.9 mEq/L (5.0-15.0)
[2024-01-17 19:16] LABS: Potassium 3.9 mEq/L (3.5-5.1)
[2024-01-17 19:46] LABS: Specific Gravity 1.007 (1.005-1.030); Urine Bilirubin NEGATIVE (Negative); Urine Blood Negative (Negative); Urine Clarity Clear (Clear); Urine Color Colorless (Yellow); Urine Glucose NEGATIVE (Negative); Urine Ketones NEGATIVE (Negative); Urine Microscopic Reflex YN NO UMIC; Urine Nitrite NEGATIVE (Negative); Urine Protein NEGATIVE (Negative); Urine Urobilinogen Normal (Normal)
--- NOTE | 2024-01-17 20:29 | RAD REPORT ---
EXAMINATION: CT HEAD WITHOUT CONTRAST CT CERVICAL SPINE WITHOUT CONTRAST CLINICAL INDICATION: Male, 68 years old. 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 Axial CT i mages through the cervical spine were obtained without intravenous contrast. Sagittal and coronal reformatted images were created from the data set. Coronal and sagittal reformatted images were creat ed from the data set. One or more of the following dose reduction techniques were used: Automated exposure control, adjustment of the mA and/or kV according to patient size, and/or iterative reconstr uction. Unless otherwise specified, incidental findings do not require dedicated imaging follow-up. [id number]. COMPARISON: No prior exam. FINDINGS: Head: INTRACRANIAL: No acute intracranial hemorrhage. No hydrocephalus. No mass effect or midline shift. Mi ld chronic small vessel ischemic changes. VASCULATURE: No visualized abnormalities in the arteries or dural venous sinuses. SCALP/SKULL: No significant soft tissue or osseous abnormalities. SINUSES: The visualized paranasal sinuses and mastoid air cells are predominantly clear. Cervical spine: ALIGNMENT: The cervical spine has normal alignment without scoliosis or spondylolisthesis. BONE: Vertebral body heights are maintained. No aggressive osseous lesions. DEGENERATIVE CHANGES: Posterior disc osteophyte complex and facet joint hypertrophy at C3-4 and C4-5 results in varying degrees of neural foraminal narrowing. This is most pronounced at C3-4 bilaterally. Mild central spinal stenosis is present is at C3-4. SOFT TISSUE: No significant abnormalities in the soft tissue of the neck. The visualized lung apices are clear. IMPRESSION: No acute intracranial abnormality. No acute fracture or traumatic malalignment of the cervical spine.
--- NOTE | 2024-01-17 20:35 | RAD REPORT ---
EXAM: CT CHEST, ABDOMEN AND PELVIS WITHOUT CONTRAST CLINICAL INDICATION: Male, 68 years [facility] MAIN Trauma TECHNIQUE: CT chest, abdomen and pelvis was performed, with IV contrast, as per department protocol. Axial, sagittal and coronal reconstructions were obtained. One or more of the following dose reduction techniques were used: Automated exposure control, adjustment of the mA and/or kV according to the patient size, and/or iterative reconstruction. Unless otherwise specified, incidental findings do not require dedicated imaging follow-up. [id number]. COMPARISON: 03/05/2019 FINDINGS: Chest: LOWER NECK/CHEST WALL: Visualized thyroid gland and soft tissues are normal. LUNGS AND AIRWAYS: Airways are clear. No evidence of airspace or interstitial process. No nodules. PLEURA: No pleural effusion. No pneumothorax. Hemidiaphragms are normally positioned. MEDIASTINUM AND LYMPH NODES: No mediastinal mass or fluid collection. Normal size mediastinal, hilar, and axillary lymph nodes. THORACIC AORTA: Normal caliber and configuration. PULMONARY ARTERIES: Normal caliber. HEART: Unremarkable. Abdomen/Pelvis LIVER: Hepatic steatosis. GALLBLADDER/BILE DUCTS: No biliary ductal dilatation. PANCREAS: No mass, ductal dilation, or torie-pancreatic fluid. SPLEEN: 6 mm low density splenic lesion is likely benign. ADRENALS: Normal; no mass. KIDNEYS AND URETERS: Normal size and contour. No hydronephrosis. GASTROINTESTINAL TRACT: Stomach is non-dilated. Small bowel has normal course and caliber. No colonic wall thickening or pericolonic inflammatory changes. PERITONEUM: No free fluid. LYMPH NODES: No lymphadenopathy. ABDOMINAL AORTA AND OTHER VESSELS: Normal caliber aorta and IVC. URINARY BLADDER: Normal contour. Small fat-containing umbilical hernia. REPRODUCTIVE ORGANS: No pathologic process. MUSCULOSKELETAL: No acute or suspicious osseous abnormality. Grade 1 anterolisthesis of L5 on S1. Rem ote left-sided rib fractures. ADDITIONAL FINDINGS: None IMPRESSION: No acute or significant abnormalities in the chest, abdomen, or pelvis.
[2024-01-17] MEDS ORDERED: KETOROLAC 30 MG/ML INJ ONE (21:12)
--- NOTE | 2024-01-17 22:02 | EDPHYS ---
Physician Documentation [facility] Name: Dedrick Holliday Age: 68 yrs Sex: Male : 1955 Arrival Date: 01/17/2024 Time: 17:11 Bed 12 Private MD: ED Physician Scooby Gonzalez HPI: 01/16 18:25 This 68 yrs old Male presents to ER via Ambulatory with complaints of Fall Injury, cp Finger Injury, Back Injury, Neck Injury. 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 landed onto upper back. Associated injuries: The patient sustained upper back injury, pain, pain with movement, injury to the chest, specifically the left chest and rib area, pain with breathing, pain with movement, tenderness, right hand, painful injury. Severity of symptoms: in the emergency department the symptoms are unchanged, despite home interventions. Historical: - Allergies: 17:45 No Known Allergies; aa5 - PMHx: 17:45 Hypertensive disorder; aa5 - PSHx: 17:45 back sx; right shoulder; aa5 - Immunization history:: Adult Immunizations unknown. - Infectious Disease History:: Denies. - Social history:: Smoking status: Patient denies any tobacco usage or history of. ROS: 18:30 Constitutional: Negative for body aches, chills, fever, poor PO intake, cp 18:30 Cardiovascular: Positive for chest pain, of the left side of chest and rib area, cp 18:30 Respiratory: Negative for cough, wheezing, 18:30 Abdomen/GI: Negative for vomiting, diarrhea, constipation, 18:30 Back: Positive for pain at rest, pain with movement, of the thoracic area, 18:30 MS/extremity: Positive for ecchymosis, pain, swelling, tenderness, of the right hand, 18:30 Neuro: Negative for altered mental status, headache, loss of consciousness, 18:30 All other systems are negative, Exam: 18:33 Constitutional: The patient appears in no acute distress, alert, awake, cp non-diaphoretic, non-toxic, well developed, well nourished, uncomfortable, 18:33 Head/Face: Normocephalic, atraumatic. cp 18:33 Eyes: Periorbital structures: appear normal, Conjunctiva: normal, no exudate, no cp injection, Sclera: no appreciated abnormality, Lids and lashes: appear normal, bilaterally, 18:33 ENT: External ear(s): are unremarkable, Nose: is normal, Mouth: Lips: moist, Oral mucosa: pink and intact, moist, Posterior pharynx: Airway: no evidence of obstruction, patent, 18:33 Neck: C-spine: vertebral tenderness, is not appreciated, crepitus, is not appreciated, ROM/movement: pain, is not appreciated, with flexion, limited range of motion, is not appreciated, 18:33 Chest/axilla: Inspection: normal, Palpation: crepitus, is not appreciated, tenderness, that is mild, of the anterior aspect of left upper chest, left lateral anterior chest and left breast, that partially reproduces the patient's complaints, 18:33 Cardiovascular: Rate: bradycardic, Rhythm: regular, Edema: is not appreciated, JVD: is not appreciated, 18:33 Respiratory: the patient does not display signs of respiratory distress, Respirations: normal, no use of accessory muscles, no retractions, labored breathing, is not present, Breath sounds: are clear throughout, no decreased breath sounds, no stridor, no wheezing, 18:33 Abdomen/GI: Inspection: abdomen appears normal, Palpation: abdomen is soft and non-tender, in all quadrants, 18:33 Back: pain, that is moderate, of the thoracic area, ROM is painful, with all movement, 18:33 Musculoskeletal/extremity: Extremities: noted in the right knee and right lower leg: abrasion, swelling, tenderness, There is no evidence of decreased ROM, deformity, ROM: full active range of motion, in the right leg, Perfusion: the extremity is normally perfused throughout, 18:33 Neuro: Orientation: to person, place \T\ time. Mentation: is normal, Motor: moves all fours, strength is normal, Sensation: is normal, 21:20 ECG was reviewed by the Attending Physician. cp Vital Signs: 17:45 BP 158 / 82; Pulse 55; Resp 18 S; Temp 97.8(TE); Pulse Ox 98% on R/A; Weight 99.79 kg aa5 (R); Height 5 ft. 10 in. (R); 18:13 BP 168 / 78; Pulse 55; Resp 16; Pulse Ox 96% ; me1 19:30 BP 156 / 81; Pulse 62; Resp 16; Pulse Ox 100% ; me1 20:30 BP 148 / 76; Pulse 63; Resp 15; Pulse Ox 99% ; me1 22:05 BP 168 / 71; Pulse 64; Resp 16; Temp 98.6; Pulse Ox 100% ; me1 17:45 Body Mass Index 31.57 (99.79 kg, 177.8 cm) aa5 MDM: 17:43 Medical Screening Exam initiated cp 22:00 Data reviewed: vital signs, nurses notes, lab test result(s), EKG, radiologic studies, cp CT scan, plain films, and as a result, I will discharge patient. 22:00 Differential diagnosis: closed head injury, contusion, fracture, multiple trauma. I cp considered the following discharge prescriptions or medication management in the emergency department Medications were administered in the Emergency Department. See MAR. Independent interpretation of the following test(s) in the Emergency Department EKG: See my EKG interpretation above. Care significantly affected by the following chronic conditions: Hypertension. Counseling: I had a detailed discussion with the patient and/or guardian regarding the historical points, exam findings, and any diagnostic results supporting the discharge/admit diagnosis, lab results, radiology results, to return to the emergency department if symptoms worsen or persist or if there are any questions or concerns that arise at home. Response to treatment: the patient's symptoms have markedly improved after treatment, and as a result, I will discharge patient. 01/16 18:23 Order name: Basic Metabolic Panel; Complete Time: 19:26 01/16 19:26 Interpretation: Normal except: CL 108; GFR 71. 01/16 18:23 Order name: CBC with Diff; Complete Time: 19:26 01/16 18:23 Order name: Type And Screen; Complete Time: 21:00 01/16 21:00 Interpretation: Reviewed. 01/16 18:23 Order name: Urinalysis w/ reflexes; Complete Time: 21:00 01/16 21:01 Interpretation: Reviewed. 01/16 21:03 Order name: Troponin High Sensitivity; Complete Time: 21:58 01/16 21:58 Interpretation: Within normal limits: Reviewed. 01/16 18:23 Order name: XRAY Hand RIGHT 3 View; Complete Time: 19:26 01/16 20:06 Order name: Head C Spine Mpr Wo Con; Complete Time: 21:00 EDMS 01/16 21:02 Interpretation: Report reviewed. 01/16 20:08 Order name: Chest Abdomen Pelvis W Cont; Complete Time: 21:00 EDMS 01/16 18:23 Order name: Labs collected and sent; Complete Time: 18:54 cp 01/16 21:03 Order name: EKG - Nurse/Tech; Complete Time: 21:14 cp EC:20 Rate is 49 beats/min. Rhythm is regular. MI interval is normal. QRS interval is normal. cp QT interval is normal. T waves are Inverted in lead aVR. Interpreted by me. Reviewed by me. Administered Medications: 21:14 Drug: Ketorolac IVP 15 mg IVP once Route: IVP; Site: left antecubital; me1 21:14 Follow up: Response: No adverse reaction; Pain is decreased me1 Disposition Summary: 01/17/24 22:01 Discharge Ordered Notes: Location: Home cp Problem: new cp Symptoms: have improved cp Condition: Stable cp Diagnosis - Contusion of right hand cp - Dorsalgia, unspecified cp - Cervicalgia cp - Chest pain, unspecified cp Followup: cp - With: Private Physician - When: 2 - 3 days - Reason: Recheck today's complaints Discharge Instructions: - Discharge Summary Sheet cp - Acute Back Pain, Adult cp - Contusion cp - Chest Wall Pain cp - Neck Exercises cp - Back Exercises cp Forms: - Medication Reconciliation Form cp - Antibiotic Education cp - Prescription Opioid Use cp - Patient Portal Instructions cp - Leadership Thank You Letter cp Prescriptions: - Anaprox DS 550 mg Oral Tablet - take 1 tablet ORAL route every 12 hours As needed; 20 tablet; Refills: 0, cp Product Selection Permitted - Cyclobenzaprine 10 mg Oral tablet - take 1 tablet ORAL route every 8 hours As needed; 20 tablet; Refills: 0, cp Product Selection Permitted Signatures: [facility] Corrie Platt, RN RN aa5 Scooby Dillard PA PA cp Carolyne Zapien RN RN me1 Corrections: (The following items were deleted from the chart) 18:23 18:23 BASIC METABOLIC PANEL+C.LAB.BRZ ordered. EDHI EDMS 18:23 18:23 CBC+H.LAB.BRZ ordered. EDMS EDMS 18:23 18:23 TYPE AND SCREEN+BB.LAB.BRZ ordered. EDMS EDMS 18:23 18:23 Urinalysis+U.LAB.BRZ ordered. EDMS EDMS 18:23 18:23 Head C Spine CAP W Con+CT.RAD.BRZ ordered. EDMS EDMS
--- NOTE | 2024-01-17 22:02 | ER ---
Nurse's Notes [facility] Name: Dedrick Holliday Age: 68 yrs Sex: Male : 1955 Arrival Date: 01/17/2024 Time: 17:11 Bed 12 Private MD: Diagnosis: Contusion of right hand;Dorsalgia, unspecified;Cervicalgia;Chest pain, unspecified Presentation: 01/16 17:45 Coronavirus screen: At this time, the client does not indicate any symptoms associated aa5 with coronavirus-19. Ebola Screen: Patient denies travel to an Ebola-affected area in the 21 days before illness onset. Initial Sepsis Screen: Does the patient meet any 2 criteria? No. Patient's initial sepsis screen is negative. Does the patient have a suspected source of infection? No. Patient's initial sepsis screen is negative. Risk Assessment: Do you want to hurt yourself or someone else? Patient reports no desire to harm self or others. Onset of symptoms was January 17, 2024. 17:45 Acuity: CONTRERAS 4 aa5 17:45 Method Of Arrival: Ambulatory aa5 17:45 Chief complaint: Patient states: Pt reports fall today and c/o pain to right hand, me1 right knee, left side of rib cage, and neck. Historical: - Allergies: 17:45 No Known Allergies; aa5 - PMHx: 17:45 Hypertensive disorder; aa5 - PSHx: 17:45 back sx; right shoulder; aa5 - Immunization history:: Adult Immunizations unknown. - Infectious Disease History:: Denies. - Social history:: Smoking status: Patient denies any tobacco usage or history of. Screenin:03 [facility] ED Fall Risk Assessment (Adult) History of falling in the last 3 months, me1 including since admission Yes- single mechanical fall (1 pt) Confusion or Disorientation No (0 pts) Intoxicated or Sedated No (0 pts) Impaired Gait No (0 pts) Mobility Assist Device Used No (0 pt) Altered Elimination No (0 pt) Score/Fall Risk Level 0 - 2 = Low Risk Maintained a safe environment, Provided non-skid footwear, Hourly rounding (assess needs \T\ fall precautionary measures) done. Abuse screen: Denies threats or abuse. Nutritional screening: No deficits noted. Tuberculosis screening: No symptoms or risk factors identified. Assessment: 18:03 General: Appears uncomfortable, well developed, well nourished, Behavior is calm, me1 cooperative, appropriate for age, Reports Pt reports fall today and c/o pain to right hand, right knee, left side of rib cage, and neck. Pain: Complains of pain in back of neck, right hand, right knee, left ribs. Pain: Pain does not radiate. Pain currently is 2 out of 10 on a pain scale. Quality of pain is described as tingling, Pain began suddenly, Is continuous. Neuro: Level of Consciousness is awake, alert, obeys commands, Oriented to person, place, time, situation, Appropriate for age. Cardiovascular: Patient's skin is warm and dry. Respiratory: Reports pain with respiration Airway is patent Respiratory effort is even, unlabored, Respiratory pattern is regular, symmetrical. GI: No signs and/or symptoms were reported involving the gastrointestinal system. : No signs and/or symptoms were reported regarding the genitourinary system. EENT: No signs and/or symptoms were reported regarding the EENT system. Derm: Wound noted right knee Wound is abrasion. Musculoskeletal: Reports pain in back of neck right hand, right knee, left rib. Vital Signs: 17:45 BP 158 / 82; Pulse 55; Resp 18 S; Temp 97.8(TE); Pulse Ox 98% on R/A; Weight 99.79 kg aa5 (R); Height 5 ft. 10 in. (R); 18:13 BP 168 / 78; Pulse 55; Resp 16; Pulse Ox 96% ; me1 19:30 BP 156 / 81; Pulse 62; Resp 16; Pulse Ox 100% ; me1 20:30 BP 148 / 76; Pulse 63; Resp 15; Pulse Ox 99% ; me1 22:05 BP 168 / 71; Pulse 64; Resp 16; Temp 98.6; Pulse Ox 100% ; me1 17:45 Body Mass Index 31.57 (99.79 kg, 177.8 cm) aa5 ED Course: 17:16 Patient arrived in ED. mg5 17:22 Scooby Dillard PA is PHCP. cp 17:22 Faisal Zheng MD is Attending Physician. cp 17:44 Arm band placed on. aa5 17:46 Triage completed. aa5 17:58 Carolyne Zapien, RN is Primary Nurse. me1 18:03 Patient has correct armband on for positive identification. Bed in low position. Call me1 light in reach. Side rails up X2. Provided Education on: POC. Verbalized understanding. . Client placed on continuous cardiac and pulse oximetry monitoring. NIBP monitoring applied. Pulse ox on. NIBP on. 18:03 No provider procedures requiring assistance completed. me1 18:36 XRAY Hand RIGHT 3 View In Process Unspecified. EDMS 18:54 Basic Metabolic Panel Sent. em1 18:54 CBC with Diff Sent. em1 18:54 Type And Screen Sent. em1 18:54 Initial lab(s) drawn, by me, sent to lab. Inserted saline lock: 20 gauge in right em1 forearm, using aseptic technique. Blood collected. Flushed with 10 mL NS. 20:19 Head C Spine Mpr Wo Con In Process Unspecified. EDMS 20:19 Chest Abdomen Pelvis W Cont In Process Unspecified. EDMS 20:32 Scooby Gonzalez MD is Attending Physician. cp 21:11 Troponin High Sensitivity Sent. ha1 21:15 EKG done, by electronic communications technician. af3 22:05 IV discontinued, intact, bleeding controlled, No redness/swelling at site. Pressure me1 dressing applied. Administered Medications: 21:14 Drug: Ketorolac IVP 15 mg IVP once Route: IVP; Site: left antecubital; me1 21:14 Follow up: Response: No adverse reaction; Pain is decreased me1 Medication: 18:03 VIS not applicable for this client. me1 Outcome: 22:01 Discharge ordered by MD. cp 22:05 Discharged to home ambulatory, with family, me1 22:05 Condition: stable 22:05 Discharge instructions given to patient, family, Instructed on discharge instructions, follow up and referral plans. medication usage, Demonstrated understanding of instructions, follow-up care, medications, Prescriptions given X 2, 22:08 Patient left the ED. me1 Signatures: Dispatcher [employer] Saul Rose em1 Corrie Platt, RN RN aa5 Scooby Dillard PA PA cp Ayala, Heidy, RN RN 1 Carolyne Zapien, JUAN C RN me1 Olive Hurd mg5 Maria Eugenia Álvarez af3 Corrections: (The following items were deleted from the chart) 18:02 17:45 Chief complaint: Patient states: Pt reports fall today and c/o pain to right me1 hand, right knee, left side of rib cage, and neck. aa5
[2024-01-17 22:54] VITALS: BP 168/71; TEMP 98.6; O2SAT 100
--- NOTE | 2024-01-20 12:18 | EKG ---
Test Date: 2024-01-17 Test Time: 21:12:42 Director Education: AF MEASUREMENT RESULTS: Intervals: Rate: 49 [place]: 194 QRSD: 84 QT: 456 QTc: 411 [place]: P: 50 [place]: 194 QRS: 12 T: 55 INTERPRETIVE STATEMENTS: Marked sinus bradycardia Abnormal ECG Compared to ECG 12/02/2015 10:41:29 Sinus rhythm no longer present Electronically Signed On 01-20-24 12:15:55 RN MENTAL HEALTH by Nakul Mock
== END 2024-01-17 22:08 | disposition home or self-care (01) ==
LOC: ER 17:11
DX: S60.221A Contusion of right hand, initial encounter (principal); R07.9 Chest pain, unspecified; M54.9 Dorsalgia, unspecified; M54.2 Cervicalgia; W17.89XA Other fall from one level to another, initial encounter; I10 Essential (primary) hypertension
CPT/HCPCS: 85025; 80048; 36415; 86900; 86850; 86901; 81003; 84484; 70450; 72125; 71260; 74177; 73130; 96374; 99284; Q9967; 93005